=== PATIENT | male | born 1950 | race Caucasian/White ===

== ENCOUNTER 2016-06-25 05:00 | Emergency (ER) | payer OTHER | END 2016-06-25 06:05 | disposition home or self-care (01) | LOC: ER1 05:00 | DX: J30.2 Other seasonal allergic rhinitis (principal); I10 Essential (primary) hypertension; E11.9 Type 2 diabetes mellitus without complications; C44.99 Other specified malignant neoplasm of skin, unspecified; Z79.84 Long term (current) use of oral hypoglycemic drugs; Z88.0 Allergy status to penicillin; Z91.013 Allergy to seafood; Z79.899 Other long term (current) drug therapy | CPT/HCPCS: 71020; 99283 ==